=== PATIENT | female | born 1955 | race Two or more races ===

== ENCOUNTER 2019-07-18 17:37 | Emergency (ER) | payer MEDICARE, OTHER ==
[~2019-07-18] VITALS: Ht 154.9 cm; Wt 63.5 kg
[~2019-07-18 17:37] MED LIST: CARV25TA2 PO; LISI-603 PO; PALI3TAB PO; SITA25TA PO
--- NOTE | 2019-07-18 17:39 | NUR ---
PT [id number] C/O GENERALIZED WEAKNESS.PER REPORT, PT IS AAOX3, NOT IN RESPIRATORY DISTRESS, HOOKED TO MONITOR, KEPT RESTED AND COMFORTABLE, WILL CONTINUE TO MONITOR.
--- NOTE | 2019-07-18 17:43 | NUR ---
SEEN AND EXAMINED BY
[2019-07-18 17:51] LABS: BASOPHILS # (AUTO) 0.1 /CMM (0.0-0.2); BASOPHILS % (AUTO) 0.9 % (0.0-2.0); EOSINOPHILS % (AUTO) 1.1 % (0.0-6.0); HEMATOCRIT 40 % (33-45); HEMOGLOBIN 13.7 g/dL (11.5-14.8); LYMPHOCYTES # (AUTO) 3.1 /CMM (0.8-4.8); LYMPHOCYTES % (AUTO) 29.8 % (20.0-44.0); MEAN CORPUSCULAR HGB CONC 34 g/dl (31.0-36.0); MEAN CORPUSCULAR VOLUME 92 fL (82-100); MONOCYTES # (AUTO) 0.6 /CMM (0.1-1.30); MONOCYTES % (AUTO) 5.8 % (2.0-12.0); NEUTROPHILS # (AUTO) 6.6 /CMM (1.8-8.9); NEUTROPHILS % (AUTO) 62.4 % (43.0-81.0); PLATELET COUNT (AUTO) 244 /CMM (150-450); RED BLOOD CELL COUNT(AUTO) 4.31 MIL/uL (4.0-5.2); WHITE BLOOD COUNT (AUTO) 10.6 K/uL (4.3-11.0)
--- NOTE | 2019-07-18 17:51 | NUR ---
PT IV LINE ESTABLISHED, BLOOD DRAWN AND SENT TO LAB.
--- NOTE | 2019-07-18 17:53 | NUR ---
PEWTER FABRICATOR AT BEDSIDE FOR XRAY.
[2019-07-18] MEDS ORDERED: IV NS 0.9% 1,000 ML BAG IV ONE (18:00)
--- NOTE | 2019-07-18 18:02 | NUR ---
URINAL GIVEN BUT UNABLE TO PROVIDE URINE SPECIMEN THIS TIME.
--- NOTE | 2019-07-18 18:03 | NUR ---
PT REFUSED CATHETER INSERTION.
[2019-07-18 18:04] LABS: CALCIUM, SERUM 9.3 mg/dL (8.5-10.1); CREATININE 1.1 mg/dL (0.6-1.3); POTASSIUM 3.9 mmol/L (3.5-5.1)
[2019-07-18 18:10] LABS: ALBUMIN 3.8 g/dL (3.4-5.0); BILIRUBIN,DIRECT 0.1 mg/dL (0.0-0.2); BILIRUBIN,TOTAL 0.4 mg/dL (0.2-1.0); TOTAL PROTEIN, SERUM 7.7 g/dL (6.4-8.2)
--- NOTE | 2019-07-18 18:50 | NUR ---
URINE SPECIMEN COLLECTED AND SENT TO LAB.
[2019-07-18 18:55] LABS: APPEARANCE,URINE Clear (CLEAR); BILIRUBIN,URINE Negative (NEGATIVE); BLOOD, URINE Negative Ery/uL (NEGATIVE); COLOR,URINE Yellow (YELLOW); KETONES,URINE Trace (NEGATIVE); LEUKOCYTE ESTERASE ,URINE Negative (NEGATIVE); NITRITE, URINE Negative (NEGATIVE); PH,URINE 5.5 (5.0-8.0); PROTEIN,URINE Negative (NEGATIVE); UGLUCOSE 100 MG/DL mg/dL (NEGATIVE); UROBILINOGEN,URINE 0.2 EU/dL (0.2)
--- NOTE | 2019-07-18 19:16 | NUR ---
REPORT REC'D FROM NORMAN [facility] FOR [facility].
--- NOTE | 2019-07-18 19:20 | NUR ---
PT APPEARS TO BE RESTING COMFORTABLY WITH NO S/S OF PAIN OR DISTRESS. PT IS AWAITING P/U BY AMBULANCE.
--- NOTE | 2019-07-18 20:30 | NUR ---
PT STATED THAT SHE LIVES ALONE AND HAS THE PERSAUD TO GET INTO HER HOME. PT STATED THAT SHE IS OK TO GO HOME. MD IS AWARE.
--- NOTE | 2019-07-18 20:38 | NUR ---
CALLED [facility]TA [phone] TRIP # [id number]
--- NOTE | 2019-07-18 20:50 | NUR ---
PT IS RESTING COMFORTABLY WITH NO S/S OF PAIN OR DISTRESS. PT IS ON THE MONITOR AND CONTINUOUS PULSE OX. WILL CONTINUE TO MONITOR THE PT.
[2019-07-18 21:48] VITALS: BP 103/68
--- NOTE | 2019-07-18 21:49 | NUR ---
IV removed. Catheter intact and site benign. Pressure and 4x4 applied to site. No bleeding noted. Patient discharged to home in stable condition. Written and verbal after care instructions given. Patient verbalizes understanding of instruction. [facility] [employer] ARRIVED AND REPORT GIVEN. PT STATED THAT SHE HAS A PERSAUD AND CAN GET INTO HER HOME.
== END 2019-07-18 21:49 | disposition home or self-care (01) ==
LOC: ER 17:45
DX: I11.0 Hypertensive heart disease with heart failure (principal); I50.9 Heart failure, unspecified; R53.1 Weakness; E11.9 Type 2 diabetes mellitus without complications; Z79.899 Other long term (current) drug therapy
CPT/HCPCS: 36415; 71045; 80048; 80076; 81001; 83690; 84484; 85025; 85730; 93005 ×2; 99284; J7030 ×2; 81000-TC